=== PATIENT | male | born 1965 | race American Indian/Alaskan Native ===

== ENCOUNTER 2017-05-12 08:59 | Emergency (ER) | payer OTHER ==
[2017-05-12 09:16] VITALS: RESP 18; TEMP 97.6; O2SAT 96
--- NOTE | 2017-05-12 09:46 | C.PDOC ---
History Of Present Illness 51-year-old male, PMHx includes CVA and known seizures, presents to the emergency department with complaints of seizure. Patient states he had a witnessed seizure (bystander) about an hour prior to arrival. EMS was called and pt brought to ED. States he feels better. Patientis taking medication, but is having increased breakthrough seizures recently. Denies headache, chest pain , shortness of breath, neck pain, back pain, numbness/weakness, bladder or bowel incontinence, or any other associated symptoms. No other complaints at this time. Time Seen by Provider: 05/12/17 09:32 Chief Complaint (Nursing): Seizure History Per: Patient History/Exam Limitations: no limitations Recent Seizure Activity Began: Hours Ago: (1) Past Medical History Reviewed: Historical Data, Nursing Documentation, Vital Signs Vital Signs: Last Vital Signs Temp 97.6 F 05/12/17 09:15 Pulse 94 H 05/12/17 10:13 Resp 18 05/12/17 10:13 BP 128/88 05/12/17 10:13 Pulse Ox 96 05/12/17 10:27 - Medical History PMH: HTN, Seizures Family History: States: No Known Family Hx - Social History Hx Alcohol Use: No Hx Substance Use: No - Immunization History Hx Tetanus Toxoid Vaccination: (unk) Hx Influenza Vaccination: Yes Hx Pneumococcal Vaccination: Yes Review Of Systems Except As Marked, All Systems Reviewed And Found Negative. Constitutional: Negative for: Fever, Chills Cardiovascular: Negative for: Chest Pain Respiratory: Negative for: Shortness of Breath Musculoskeletal: Negative for: Neck Pain, Back Pain Neurological: Positive for: Seizures. Negative for: Weakness, Numbness, Headache, Dizziness Physical Exam - Physical Exam Appears: Non-toxic, No Acute Distress, Other (No post-ictal period) Skin: Warm, Dry, No Rash Head: Atraumatic, Normacephalic Eye(s): bilateral: Normal Inspection, PERRL, EOMI Nose: Normal Oral Mucosa: Moist Tongue: No Laceration Neck: Normal ROM Cardiovascular: Rhythm Regular Respiratory: Normal Breath Sounds Gastrointestinal/Abdominal: Normal Exam Back: Normal Inspection Extremity: Normal ROM Neurological/Psych: Oriented x3, Normal Speech ED Course And Treatment O2 Sat by Pulse Oximetry: 96 (on RA) Pulse Ox Interpretation: Normal Medical Decision Making Medical Decision Making: Patient states he feels better and would like to be discharged. States he has a Hx of seizures, and will f/u outpatient with PMD. Disposition - Disposition Referrals: Rayo Whitfield MD [Staff Provider] - Disposition: HOME/ ROUTINE Disposition Time: 09:52 Condition: GOOD Additional Instructions: Follow up with the medical doctor within 1-2 days without fail for seizure medication review. Return if worsened. Instructions: Recurrent Seizures in Adults (ED) Forms: Work Excuse - Clinical Impression Clinical Impression: Seizure - PA / BED AND BREAKFAST INNKEEPER / Resident Statement MD/DO has reviewed & agrees with the documentation as recorded. - Scribe Statement The provider has reviewed the documentation as recorded by the Scribe (Laxmi Akbar) All medical record entries made by the Scribe were at my direction and personally dictated by me. I have reviewed the chart and agree that the record accurately reflects my personal performance of the history, physical exam, medical decision making, and the department course for this patient. I have also personally directed, reviewed, and agree with the discharge instructions and disposition.
[2017-05-12 10:20] VITALS: BP 128/88; PULSE 94
== END 2017-05-12 10:14 | disposition home or self-care (01) ==
LOC: C.ER 08:59
DX: G40.909 Epilepsy, unspecified, not intractable, without status epilepticus (principal)

== ENCOUNTER 2017-05-26 09:38 | Observation (INO) | payer OTHER ==
--- NOTE | 2017-05-26 09:52 | C.PDOC ---
History Of Present Illness Patient is a 51 y/o M with hx of seizures (seen in his ED 1 month ago for similar complaint), ?compliance with medication, presenting after seizure. Patient had generalized tonic clonic seizure at [facility]. Patient was given versed IM and ativan 2mg IV with resolution of seizure Time Seen by Provider: 05/26/17 09:44 Past Medical History Vital Signs: Last Vital Signs Temp 98.4 F 05/26/17 15:13 Pulse 79 05/26/17 15:13 Resp 18 05/26/17 15:13 BP 138/93 H 05/26/17 15:13 Pulse Ox 99 05/26/17 15:13 - Medical History PMH: HTN, Seizures Family History: States: No Known Family Hx - Social History Hx Alcohol Use: No Hx Substance Use: No - Immunization History Hx Tetanus Toxoid Vaccination: (unk) Hx Influenza Vaccination: Yes Hx Pneumococcal Vaccination: Yes Review Of Systems Review Of Systems: ROS cannot be obtained secondary to pt's inabilty to answer questions. Physical Exam - Physical Exam Appears: Well, Non-toxic, No Acute Distress (post-ictal and non-verbal, moaning , spontaneous movement of extremities) Skin: Normal Color Head: Atraumatic, Normacephalic Eye(s): bilateral: PERRL (no gaze deviation or tonic movements to suggest seizure) Tongue: Normal Appearing Lips: Normal Appearing Neck: Supple Chest: Symmetrical Cardiovascular: Rhythm Regular Respiratory: Normal Breath Sounds, No Rales, No Rhonchi, No Wheezing Gastrointestinal/Abdominal: Soft, No Tenderness, No Mass, No Distention Extremity: Other (moving extremities x 4 spontaneously) ED Course And Treatment - Laboratory Results Result Diagrams: 05/26/17 10:06 05/26/17 10:06 Medical Decision Making Medical Decision Making: Patient presenting after seizure. Not actively seizing. Currently post-ictal. FS:109. r/o trauma from fall 11:03AM Patient is supposed to be on unknown anti-epileptic. Dilantin level <3. Loaded with cerebyx 11:43AM Patient more alert. Reports hx of CVA and seizures, non-compliant with keppra. CT head and CT c-spine negative. P: sobriety 1:24PM Loading patient with cerebryx. 3:30PM Patient now more awake 4:07PM CT head and CT c-spine negative. Labs WNL. Loaded with cerebryx. Patient is ambulating around the ED and tolerating po without complaints. ED OBSERVATION Discharge: Yes Date of observation admission: 05/26/17 Time of observation admission: 11:04 Disposition - Disposition Disposition: HOME/ ROUTINE Disposition Time: 11:03 Condition: GOOD - Clinical Impression Clinical Impression: Seizure
[2017-05-26 10:12] LABS: BASO % 0.7 % (0.0-2.0); EOS # 0.2 K/uL (0.0-0.7); EOS % 3.5 % (0.0-4.0); HEMOGLOBIN 13.4 g/dL (12.0-18.0); LYMPH # 1.3 K/uL (1.0-4.3); LYMPH % 22.2 % (20.0-40.0); MEAN CELL VOLUME 97.2 fL (80.0-94.0); MEAN CORPUSCULAR HGB CONC 32.9 g/dL (33.0-37.0); MEAN PLATELET VOLUME 8.8 fL (7.2-11.7); MONO # 0.3 K/uL (0.0-0.8); MONO % 5.2 % (0.0-10.0); NEUT % 68.4 % (50.0-75.0); NRBC % 0.1 % (0.0-2.0); RBC 4.2 Mil/uL (4.40-5.90); WHITE BLOOD COUNT 5.9 K/uL (4.8-10.8)
[2017-05-26 10:20] LABS: ALBUMIN 3.6 g/dL (3.5-5.0)
[2017-05-26 10:22] LABS: GFR AFRICAN-AMERICAN > 60; GFR NON-AFRICAN AMERICAN > 60
[2017-05-26 10:23] LABS: ALB/GLOB RATIO 1.3 (1.0-2.1); ALT/SGPT 25 U/L (21-72); AST/SGOT 20 U/L (17-59); BLOOD UREA NITROGEN 11 mg/dL (9-20)
[2017-05-26 10:24] LABS: CALCIUM 8.4 mg/dl (8.6-10.4)
[2017-05-26] MEDS ORDERED: Fosphenytoin 1,000 MG in Sodium Chloride 0.9% 50 ML IV STA (11:00)
--- NOTE | 2017-05-26 11:24 | CT ---
PROCEDURE: CT HEAD WITHOUT CONTRAST. HISTORY: seizure with fall COMPARISON: None available. TECHNIQUE: Axial computed tomography images were obtained through the head/brain without intravenous contrast. Radiation dose: Total exam DLP = 866.84 mGy-cm. This CT exam was performed using one or more of the following dose reduction techniques: Automated exposure control, adjustment of the mA and/or kV according to patient size, and/or use of iterative reconstruction technique. FINDINGS: HEMORRHAGE: No intracranial hemorrhage. BRAIN: No mass effect or edema. No atrophy or chronic microvascular ischemic changes. VENTRICLES: Unremarkable. No hydrocephalus. CALVARIUM: Unremarkable. PARANASAL SINUSES: Chronic ethmoid sinusitis. MASTOID AIR CELLS: Unremarkable as visualized. No inflammatory changes. OTHER FINDINGS: None. IMPRESSION: Normal CT of the Head. No intracranial mass, hemorrhage or evidence of acute infarct. Chronic ethmoid sinusitis noted.
--- NOTE | 2017-05-26 11:28 | CT ---
PROCEDURE: CT Cervical Spine without contrast HISTORY: <fall> COMPARISON: None available. TECHNIQUE: Axial computed tomography images were obtained of the cervical spine without the use of intravenous contrast. Coronal and sagittal reformatted images were created and reviewed. Radiation dose: Total exam DLP = 622.33 mGy-cm. This CT exam was performed using one or more of the following dose reduction techniques: Automated exposure control, adjustment of the mA and/or kV according to patient size, and/or use of iterative reconstruction technique. FINDINGS: VERTEBRAE: No fracture. Normal alignment. No destructive bony lesion. DISCS/SPINAL CANAL/NEURAL FORAMINA: No significant central canal or neural foraminal stenosis. Discs heights are grossly preserved. PARASPINAL SOFT TISSUES: Unremarkable. OTHER FINDINGS: Centrilobular pulmonary emphysema noted in the visualized portions of the upper lobes. IMPRESSION: No fracture/ dislocation. Incidentally noted centrilobular pulmonary emphysema.
[2017-05-26 15:14] VITALS: BP 138/93; PULSE 79; RESP 18; TEMP 98.4; O2SAT 99
== END 2017-05-26 16:28 | disposition home or self-care (01) ==
LOC: C.ER 09:38 → C.9OBSV 11:03
PROVIDERS: ADMIT Emergency Medicine; ATTEND Emergency Medicine
DX: G40.409 Other generalized epilepsy and epileptic syndromes, not intractable, without status epilepticus (principal); I10 Essential (primary) hypertension; Z86.73 Personal history of transient ischemic attack (TIA), and cerebral infarction without residual deficits; Z91.14 Patient's other noncompliance with medication regimen
CPT/HCPCS: 70450; 72125; 80053; 80185; 82948; 83735; 84100; 85025; 96360; 99285; G0378; Q2009